=== PATIENT | female | born 1955 | race Caucasian/White ===

== ENCOUNTER 2017-11-15 14:03 | Observation (INO) | payer BC ==
[2017-11-15] MEDS ORDERED: Sodium Chloride 0.9% 1,000 ML IV ONE (14:36)
--- NOTE | 2017-11-15 14:41 | EDM.PDOC ---
ED HPI GENERAL MEDICAL PROBLEM - General Chief Complaint: General Stated Complaint: DIZZY Time Seen by Provider: 11/15/17 14:30 Source of Information: Reports: Patient, Family History Limitations: Reports: No Limitations - History of Present Illness INITIAL COMMENTS - FREE TEXT/NARRATIVE: History of present illness: [62-year-old female presents status post syncopal episode. Patient was taking a shower when she became dizzy and fell over she doesn't recall if she fell and hit her head or what exactly transpired she does know that she was standing up felt dizzy and then she was lying down. Patient indicates that she is a diabetic and that she has been feeling unwell since Tuesday and has slept most the weekend and has failed to take any of her medication. Patient indicates she did a random blood sugar after this episode in the shower and her blood sugars 199 her finger stick. Patient indicates she is just now starting to have stomach pain and some diarrhea she denies any knowledge of flu and/or flu vaccine.] Review of systems: As per history of present illness and below otherwise all systems reviewed and negative. Past medical history: As per history of present illness and as reviewed below otherwise noncontributory. Surgical history: As per history of present illness and as reviewed below otherwise noncontributory. Social history: No reported history of drug or alcohol abuse. Family history: As per history of present illness and as reviewed below otherwise noncontributory. Physical exam: HEENT: Atraumatic, normocephalic, pupils reactive, negative for conjunctival pallor or scleral icterus, mucous membranes moist, throat clear, neck supple, nontender, trachea midline. Lungs: Clear to auscultation, breath sounds equal bilaterally, chest nontender. Heart: S1S2, regular, negative for clicks, rubs, or JVD. Abdomen: Soft, nondistended, nontender. Negative for masses or hepatosplenomegaly. Negative for costovertebral tenderness. Pelvis: Stable nontender. Genitourinary: Deferred. Rectal: Deferred. Extremities: Atraumatic, negative for cords or calf pain. Neurovascular unremarkable. Neuro: Awake, alert, oriented. Cranial nerves II through XII unremarkable. Cerebellum unremarkable. Motor and sensory unremarkable throughout. Exam nonfocal. Discussed admission for observation with patient and she indicated that she would stay. Diagnostics: [CBC, CMP, EKG, CT of head without contrast, troponin number UA] Therapeutics: [IV fluid] Impression: [Syncopal episode] Plan: [Admit for observation] Definitive disposition and diagnosis as appropriate pending reevaluation and review of above. body ahces Pain Score (Numeric/FACES): 8 - Related Data Allergies Allergy/AdvReac Type Severity Reaction Status Date / Time amoxicillin Allergy Vaginitis Verified 11/15/17 14:15 cephalexin monohydrate Allergy Itching Verified 11/15/17 14:15 [From Keflex] prednisone Allergy Chest Verified 11/15/17 14:15 Tightness Regular Band-aids Allergy Redness Uncoded 04/02/15 16:14 Home Meds: Home Meds Aspirin [Halfprin] 1 tab PO DAILY 04/02/15 [History] [place]-3 Fatty Acids [[place]-3] 1 tab PO DAILY 04/02/15 [History] Triamterene/Hydrochlorothiazid [Triamterene-HCTZ 75-50 MG] 1 tab PO BRK [History] amLODIPine Besylate/Benazepril [Amlodipine-Benazepril 5-40 MG] 1 tab PO BRK [History] atorvaSTATin Calcium [Atorvastatin Calcium] 40 mg PO BEDTIME 04/02/15 [History] Calcium Polycarbophil [Fiber-Caps] 625 mg PO DAILY 11/15/17 [History] Glimepiride [Amaryl] 2 mg PO WITHBREAKFAST 11/15/17 [History] Loratadine/Pseudoephedrine [Allerclear D-24Hr ER] 1 each PO DAILY 11/15/17 [ History] Multivitamin [Daily Mitch] 1 each PO DAILY 11/15/17 [History] Pioglitazone HCl/Metformin HCl [Actoplus Met 15 MG-850 MG] 1 tab PO BIDMEALS 01/01 [History] Repaglinide 2 mg PO TIDMEALS 11/15/17 [History] Past Medical History HEENT History: Reports: Impaired Vision Cardiovascular History: Reports: High Cholesterol, Hypertension Respiratory History: Reports: None Gastrointestinal History: Reports: None Genitourinary History: Reports: None [employer]ET[employer] INTERN History: Reports: None Musculoskeletal History: Reports: None Neurological History: Reports: None Psychiatric History: Reports: None Endocrine/Metabolic History: Reports: Diabetes, Type II Hematologic History: Reports: None Immunologic History: Reports: None Oncologic (Cancer) History: Reports: None Dermatologic History: Reports: None - Infectious Disease History Infectious Disease History: Reports: Chicken Pox, Measles - Past Surgical History Head Surgeries/Procedures: Reports: None HEENT Surgical History: Reports: None Cardiovascular Surgical History: Reports: None Respiratory Surgical History: Reports: None GI Surgical History: Reports: Appendectomy, Cholecystectomy Female Surgical History: Reports: None Endocrine Surgical History: Reports: None Neurological Surgical History: Reports: None Musculoskeletal Surgical History: Reports: None Oncologic Surgical History: Reports: None Dermatological Surgical History: Reports: None Social & Family History - Family History Family Medical History: Noncontributory - Tobacco Use Smoking Status *Q: Never Smoker - Caffeine Use Caffeine Use: Reports: Coffee - Alcohol Use Days Per Week of Alcohol Use: 1 Number of Drinks Per Day: 1 Total Drinks Per Week: 1 - Recreational Drug Use Recreational Drug Use: No Drug Use in Last 12 Months: No ED ROS GENERAL - Review of Systems Review Of Systems: See Below (See history of present illness) ED EXAM, GENERAL - Physical Exam Exam: See Below (See history of present illness) Course - Vital Signs Last Recorded V/S: Last Vital Signs Temp 36.1 C 11/15/17 14:16 Pulse 81 11/15/17 14:16 Resp 18 11/15/17 14:16 BP 157/71 H 11/15/17 14:16 Pulse Ox 100 11/15/17 14:16 - Orders/Labs/Meds Orders: Active Orders 24 hr Category Date Time Status EKG Documentation Completion [RC] STAT Care 11/15/17 14:36 Active UA W/MICROSCOPIC [URIN] Stat Lab 11/15/17 14:41 Uncollected Labs: Laboratory Tests 11/15/17 11/15/17 Range/Units 15:19 15:19 WBC 3.00 L (4.0-11.0) K/uL RBC 4.50 (4.30-5.90) M/uL Hgb 13.0 (12.0-16.0) g/dL Hct 38.5 (36.0-46.0) % MCV 85.6 (80.0-98.0) fL MCH 28.9 (27.0-32.0) pg MCHC 33.8 (31.0-37.0) g/dL RDW Std Deviation 42.4 (28.0-62.0) fl RDW Coeff of Jeannie 14 (11.0-15.0) % Plt Count 189 (150-400) K/uL MPV 9.50 (7.40-12.00) fL Neut % (Auto) 62.7 (48.0-80.0) % Lymph % (Auto) 26.0 (16.0-40.0) % [place] % (Auto) 10.7 (0.0-15.0) % Eos % (Auto) 0.3 (0.0-7.0) % Baso % (Auto) 0.3 (0.0-1.5) % Neut # (Auto) 1.9 (1.4-5.7) K/uL Lymph # (Auto) 0.8 (0.6-2.4) K/uL [place] # (Auto) 0.3 (0.0-0.8) K/uL Eos # (Auto) 0.0 (0.0-0.7) K/uL Baso # (Auto) 0.0 (0.0-0.1) K/uL Nucleated RBC % 0.0 /100WBC Nucleated RBCs # 0 K/uL Sodium 132 L (136-146) mmol/L Potassium 3.2 L (3.5-5.1) mmol/L Chloride 93 L (98-110) mmol/L Carbon Dioxide 24 (21-31) mmol/L BUN 27 H (6.0-23.0) mg/dL Creatinine 1.7 H (0.6-1.5) mg/dL Est Cr Clr Drug Dosing 32.94 mL/min Estimated GFR (MDRD) 30.4 ml/min Glucose 213 H (60-110) mg/dL Calcium 9.1 (8.8-10.8) mg/dL Total Bilirubin 0.5 (0.1-1.5) mg/dL AST 36 (5-40) IU/L ALT 47 (8-54) IU/L Alkaline Phosphatase 59 (40-150) Troponin I < 0.10 (0.0-0.29) NG/ML Total Protein 7.0 (6.0-8.0) g/dL Albumin 3.8 (3.4-4.8) g/dL Globulin 3.2 (2.0-3.5) g/dL Albumin/Globulin Ratio 1.2 L (1.3-2.8) Meds: Medications Discontinued Medications Generic Name Dose Route Start Last Admin Trade Name Win PRN Reason Stop Dose Admin Sodium Chloride 1,000 mls @ 999 mls/hr 11/15/17 14:36 11/15/17 15:36 Normal Saline IV 11/15/17 15:36 999 mls/hr STAT ONE Administration Departure - Departure Time of Disposition: 16:24 Disposition: Home, Self-Care 01 Condition: Good Clinical Impression: Syncopal episodes - Discharge Information Referrals: PCP,None [Primary Care Provider] - Forms: ED Department Discharge - My Orders Last 24 Hours: My Active Orders 11/15/17 14:36 EKG Documentation Completion [RC] STAT 11/15/17 14:41 UA W/MICROSCOPIC [URIN] Stat - Assessment/Plan Last 24 Hours: My Active Orders 11/15/17 14:36 EKG Documentation Completion [RC] STAT 11/15/17 14:41 UA W/MICROSCOPIC [URIN] Stat
[2017-11-15 15:47] LABS: CHLORIDE,CL 93 mmol/L (98-110); SODIUM,NA 132 mmol/L (136-146)
--- NOTE | 2017-11-15 16:12 | CT ---
EXAMINATION: Non contrast CT head. Coronal and sagittal reformats. HISTORY: Pain FINDINGS: No evidence of intra or extra axial hemorrhage, mass, midline shift, hydrocephalus or edema. Minimal periventricular and subcortical white matter hypodensities are noted. No hypoattenuation changes in the major vascular territories to suggest acute infarct. No abnormal i ntracranial calcifications are detected. No evidence of substantial vascular calcifications. There is mild mucosal thickening within the maxillary sinuses. The orbits and globes are symmetric. M astoid air cells are clear. Pituitary fossa appears unremarkable. The calvarium is intact. No evidence of skull fracture. IMPRESSION: 1. No acute intracranial findings. 2. Likely minimal small vessel ischemic changes.
[2017-11-15] MEDS ORDERED: Ondansetron 4 MG/2 ML SDV IVPUSH PRN (19:04)
--- NOTE | 2017-11-15 19:11 | PCM.HP ---
H&P History of Present Illness - General Admit Problem/Dx: Admission Diagnosis/Problem Admission Diagnosis/Problem Syncope - History of Present Illness Initial Comments - Free Text/Narative: 62 yo male with pmh of Type 2 DM, hypertension, hyperlipidemia who presents with several day history of not feeling well. She reports loss of apatite, nausea, diarrhea, and cough. She denies any shortness of breath, fevers, or chills. Today she passed out in the shower. She does not think she hit her head. She reported feeling dizzy prior to passing out. Headache Pain Score (Numeric/FACES): 8 body ahces Pain Score (Numeric/FACES): 8 - Related Data Allergies/Adverse Reactions: Allergies Allergy/AdvReac Type Severity Reaction Status Date / Time amoxicillin Allergy Vaginitis Verified 11/15/17 14:15 cephalexin monohydrate Allergy Itching Verified 11/15/17 14:15 [From Keflex] prednisone Allergy Chest Verified 11/15/17 14:15 Tightness Regular Band-aids Allergy Redness Uncoded 04/02/15 16:14 Home Medications: Home Meds Aspirin [Halfprin] 1 tab PO DAILY 04/02/15 [History] [place]-3 Fatty Acids [[place]-3] 1 tab PO DAILY 04/02/15 [History] Triamterene/Hydrochlorothiazid [Triamterene-HCTZ 75-50 MG] 1 tab PO BRK [History] amLODIPine Besylate/Benazepril [Amlodipine-Benazepril 5-40 MG] 1 tab PO BRK [History] atorvaSTATin Calcium [Atorvastatin Calcium] 40 mg PO BEDTIME 04/02/15 [History] Calcium Polycarbophil [Fiber-Caps] 625 mg PO DAILY 11/15/17 [History] Glimepiride [Amaryl] 2 mg PO WITHBREAKFAST 11/15/17 [History] Loratadine/Pseudoephedrine [Allerclear D-24Hr ER] 1 each PO DAILY 11/15/17 [ History] Multivitamin [Daily Mitch] 1 each PO DAILY 11/15/17 [History] Pioglitazone HCl/Metformin HCl [Actoplus Met 15 MG-850 MG] 1 tab PO BIDMEALS 01/01 [History] Repaglinide 2 mg PO TIDMEALS 11/15/17 [History] Past Medical History HEENT History: Reports: Impaired Vision Cardiovascular History: Reports: High Cholesterol, Hypertension Respiratory History: Reports: None Gastrointestinal History: Reports: None Genitourinary History: Reports: None 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 Musculoskeletal History: Reports: None Neurological History: Reports: None Psychiatric History: Reports: None Endocrine/Metabolic History: Reports: Diabetes, Type II Hematologic History: Reports: None Immunologic History: Reports: None Oncologic (Cancer) History: Reports: None Dermatologic History: Reports: None - Infectious Disease History Infectious Disease History: Reports: Chicken Pox, Measles - Past Surgical History Head Surgeries/Procedures: Reports: None HEENT Surgical History: Reports: None Cardiovascular Surgical History: Reports: None Respiratory Surgical History: Reports: None GI Surgical History: Reports: Appendectomy, Cholecystectomy Female Surgical History: Reports: None Endocrine Surgical History: Reports: None Neurological Surgical History: Reports: None Musculoskeletal Surgical History: Reports: None Oncologic Surgical History: Reports: None Dermatological Surgical History: Reports: None Social & Family History - Family History Family Medical History: Noncontributory - Tobacco Use Smoking Status *Q: Never Smoker Second Hand Smoke Exposure: No - Caffeine Use Caffeine Use: Reports: Coffee - Alcohol Use Days Per Week of Alcohol Use: 1 Number of Drinks Per Day: 1 Total Drinks Per Week: 1 - Recreational Drug Use Recreational Drug Use: No Drug Use in Last 12 Months: No H&P Review of Systems - Review of Systems: Review Of Systems: ROS reveals no pertinent complaints other than HPI. Exam - Exam Exam: See Below - Vital Signs Vital Signs: Last Vital Signs Temp 36.7 C 11/15/17 17:55 Pulse 76 11/15/17 17:55 Resp 20 11/15/17 17:55 BP 160/74 H 11/15/17 17:55 Pulse Ox 99 11/15/17 17:55 Weight: 108.6 kg - Exam General: Alert, Oriented HEENT: Mucosa Moist & [place] Lungs: Clear to Auscultation, Normal Respiratory Effort Cardiovascular: Regular Rate, Regular Rhythm GI/Abdominal Exam: Soft, Non-Tender, No Distention Extremities: No Pedal Edema Skin: Warm, Dry, Intact Neurological: No: Focal Deficit - Patient Data Result Diagrams: 11/16/17 05:02 11/16/17 05:02 *Q Meaningful Use (ADM) - VTE *Q VTE Criteria *Q: - Stroke *Q Stroke Criteria *Q: - AMI *Q AMI Criteria *Q: Problem List Initiated/Reviewed/Updated: Yes Orders Last 24hrs: Active Orders 24 hr Category Date Time Status Accu Check [Blood Glucose Check, Bedside] [RC] TIDAC Care 11/15/17 19:07 Ordered Antiembolic Devices [RC] PER UNIT ROUTINE Care 11/15/17 19:05 Ordered Oxygen Therapy [RC] PRN Care 11/15/17 19:04 Ordered Telemetry Monitoring [Cardiac Monitoring] [RC] Q8H Care 11/15/17 17:14 Active [place] ad [place] [RC] ASDIRECTED Care 11/15/17 19:04 Ordered VTE/DVT Education [RC] PER UNIT ROUTINE Care 11/15/17 19:04 Ordered Vital Signs [RC] Q4H Care 11/15/17 19:04 Ordered [place] [employer] Diet [DIET] Diet 11/15/17 Breakfast Ordered BASIC METABOLIC PANEL,BMP [CHEM] AM Lab 11/16/17 05:11 Ordered CBC WITH AUTO DIFF [HEME] AM Lab 11/16/17 05:11 Ordered Insulin Aspart [NovoLOG] Med 11/16/17 07:30 Ordered See Protocol SUBCUT TIDAC Ondansetron [Zofran] Med 11/15/17 19:04 Ordered 4 mg IVPUSH Q4H PRN Sodium Chloride 0.9% @ 125 MLS/HR (1000ml) Med 11/15/17 19:15 Ordered Sodium Chloride 0.9% [Normal Saline] 1,000 ml IV ASDIRECTED Sequential Compression Device [OM.PC] Per Unit Routine Oth 11/15/17 19:04 Ordered Resuscitation Status Routine Resus Stat 11/15/17 19:04 Ordered Medication Orders Sodium Chloride (Normal Saline) 1,000 mls @ 125 mls/hr IV ASDIRECTED UMANG Ondansetron HCl (Zofran) 4 mg IVPUSH Q4H PRN PRN Reason: Nausea Assessment/Plan Comment:: 62 yo female admitted following a syncopal event. Based on her history I suspect dehydration due to viral gastroenteritis. We will hydrate with IV fluids and monitor on telemetry. We will place on diabetic diet and place on sliding scale insulin premeals.
[2017-11-15] MEDS: Sodium Chloride 0.9% 1,000 ML IV SCH (20:36)
[2017-11-15] MEDS ORDERED: atorvaSTATin 40 MG Tab PO SCH (21:00)
[2017-11-15] MEDS: Acetaminophen 325 MG Tab PO PRN (21:35)
[2017-11-16] MEDS: Sodium Chloride 0.9% 1,000 ML IV SCH (04:52)
[2017-11-16] MEDS ORDERED: Insulin Aspart 100 Units/ML 3 ML Pen SUBCUT SCH (07:30)
[2017-11-16 08:53] VITALS: BP 130/67
[2017-11-16] MEDS ORDERED: Potassium Chloride 10% 20 MEQ/15 ML Soln 30 ML UD Cup PO ONE (08:53)
[2017-11-16] MEDS ORDERED: Potassium Chloride 20 MEQ Tab.ER PO ONE (08:53)
--- NOTE | 2017-11-16 08:57 | PCM.DCSUM1 ---
Discharge Summary - Hospital Course Free Text/Narrative:: 62 yo fm with history of HTN, hypercholesterolemia and DM type 2 admitted to observation for syncope. She was observed for 24 hours. Her vitals were stable and telemetry was wnl. Syncope did not recur. She was placed on ISs sliding scale for her DM. She was discharged home the following day. She will f/u with her PCP. No changes made to home medications. - Discharge Data Discharge Date: 11/16/17 Discharge Disposition: Home, Self-Care 01 Condition: Good - Patient Instructions Diet: Heart Healthy Diet Activity: As Tolerated Showering/Bathing: March Shower Notify Provider of: Fever, Increased Pain, Swelling and Redness, Drainage, Nausea and/or Vomiting - Discharge Plan Home Medications: Home Meds Aspirin [Halfprin] 1 tab PO DAILY 04/02/15 [History] [place]-3 Fatty Acids [[place]-3] 1 tab PO DAILY 04/02/15 [History] Triamterene/Hydrochlorothiazid [Triamterene-HCTZ 75-50 MG] 1 tab PO BRK [History] amLODIPine Besylate/Benazepril [Amlodipine-Benazepril 5-40 MG] 1 tab PO BRK [History] atorvaSTATin Calcium [Atorvastatin Calcium] 40 mg PO BEDTIME 04/02/15 [History] Calcium Polycarbophil [Fiber-Caps] 625 mg PO DAILY 11/15/17 [History] Glimepiride [Amaryl] 2 mg PO WITHBREAKFAST 11/15/17 [History] Loratadine/Pseudoephedrine [Allerclear D-24Hr ER] 1 each PO DAILY 11/15/17 [ History] Multivitamin [Daily Mitch] 1 each PO DAILY 11/15/17 [History] Pioglitazone HCl/Metformin HCl [Actoplus Met 15 MG-850 MG] 1 tab PO BIDMEALS 01/01 [History] Repaglinide 2 mg PO TIDMEALS 11/15/17 [History] Forms: ED Department Discharge Referrals: PCP,None [Primary Care Provider] - - Discharge Summary/Plan Comment DC Time >30 min.: No - General Info Functional Status: Reports: Pain Controlled, Tolerating Diet, Ambulating, Urinating - Review of Systems General: Reports: No Symptoms HEENT: Reports: No Symptoms Pulmonary: Reports: No Symptoms Cardiovascular: Reports: No Symptoms Gastrointestinal: Reports: No Symptoms Genitourinary: Reports: No Symptoms Musculoskeletal: Reports: No Symptoms Skin: Reports: No Symptoms Neurological: Reports: No Symptoms Psychiatric: Reports: No Symptoms - Patient Data Vitals - Most Recent: Last Vital Signs Temp 36.3 C 11/16/17 08:00 Pulse 75 11/16/17 08:00 Resp 18 11/16/17 08:00 BP 130/67 11/16/17 08:00 Pulse Ox 98 11/16/17 08:00 Weight - Most Recent: 108.6 kg I&O - Last 24 hours: Intake & Output 11/15/17 11/16/17 11/16/17 22:59 06:59 14:59 Intake Total 1849 Output Total 500 Balance 1349 Lab Results - Last 24 hrs: Laboratory Results - last 24 hr 11/15/17 11/15/17 11/16/17 Range/Units 21:26 21:35 05:02 WBC 3.17 L (4.0-11.0) K/uL RBC 4.40 (4.30-5.90) M/uL Hgb 12.7 (12.0-16.0) g/dL Hct 37.5 (36.0-46.0) % MCV 85.2 (80.0-98.0) fL MCH 28.9 (27.0-32.0) pg MCHC 33.9 (31.0-37.0) g/dL RDW Std Deviation 42.6 (28.0-62.0) fl RDW Coeff of Jeannie 14 (11.0-15.0) % Plt Count 178 (150-400) K/uL MPV 9.90 (7.40-12.00) fL Neut % (Auto) 42.0 L (48.0-80.0) % Lymph % (Auto) 48.6 H (16.0-40.0) % [place] % (Auto) 9.1 (0.0-15.0) % Eos % (Auto) 0.0 (0.0-7.0) % Baso % (Auto) 0.3 (0.0-1.5) % Neut # (Auto) 1.3 L (1.4-5.7) K/uL Lymph # (Auto) 1.5 (0.6-2.4) K/uL [place] # (Auto) 0.3 (0.0-0.8) K/uL Eos # (Auto) 0.0 (0.0-0.7) K/uL Baso # (Auto) 0.0 (0.0-0.1) K/uL Nucleated RBC % 0.0 /100WBC Nucleated RBCs # 0 K/uL Sodium (136-146) mmol/L Potassium (3.5-5.1) mmol/L Chloride (98-110) mmol/L Carbon Dioxide (21-31) mmol/L BUN (6.0-23.0) mg/dL Creatinine (0.6-1.5) mg/dL Est Cr Clr Drug Dosing mL/min Estimated GFR (MDRD) ml/min Glucose (60-110) mg/dL POC Glucose 148 H (60-110) mg/dL Calcium (8.8-10.8) mg/dL Urine Color YELLOW Urine Appearance HAZY Urine pH 6.5 (5.0-8.0) Ur Specific [place] <= 1.005 (1.001-1.035) Urine Protein NEGATIVE (NEGATIVE) mg/dL Urine Glucose (UA) NEGATIVE (NEGATIVE) mg/dL Urine Ketones NEGATIVE (NEGATIVE) mg/dL Urine Occult Blood NEGATIVE (NEGATIVE) Urine Nitrite NEGATIVE (NEGATIVE) Urine Bilirubin NEGATIVE (NEGATIVE) Urine Urobilinogen 0.2 (<2.0) EU/dL Ur Leukocyte Esterase MODERATE (NEGATIVE) Urine RBC 0-2 (0-2/HPF) Urine WBC 4-6 (0-5/HPF) Ur Epithelial Cells FEW (NONE-FEW) Urine Bacteria FEW (NEGATIVE) 11/16/17 11/16/17 Range/Units 05:02 06:39 WBC (4.0-11.0) K/uL RBC (4.30-5.90) M/uL Hgb (12.0-16.0) g/dL Hct (36.0-46.0) % MCV (80.0-98.0) fL MCH (27.0-32.0) pg MCHC (31.0-37.0) g/dL RDW Std Deviation (28.0-62.0) fl RDW Coeff of Jeannie (11.0-15.0) % Plt Count (150-400) K/uL MPV (7.40-12.00) fL Neut % (Auto) (48.0-80.0) % Lymph % (Auto) (16.0-40.0) % [place] % (Auto) (0.0-15.0) % Eos % (Auto) (0.0-7.0) % Baso % (Auto) (0.0-1.5) % Neut # (Auto) (1.4-5.7) K/uL Lymph # (Auto) (0.6-2.4) K/uL [place] # (Auto) (0.0-0.8) K/uL Eos # (Auto) (0.0-0.7) K/uL Baso # (Auto) (0.0-0.1) K/uL Nucleated RBC % /100WBC Nucleated RBCs # K/uL Sodium 137 (136-146) mmol/L Potassium 3.0 L (3.5-5.1) mmol/L Chloride 100 (98-110) mmol/L Carbon Dioxide 23 (21-31) mmol/L BUN 21 (6.0-23.0) mg/dL Creatinine 1.2 (0.6-1.5) mg/dL Est Cr Clr Drug Dosing 46.66 mL/min Estimated GFR (MDRD) 45.4 ml/min Glucose 121 H (60-110) mg/dL POC Glucose 127 H (60-110) mg/dL Calcium 8.3 L (8.8-10.8) mg/dL Urine Color Urine Appearance Urine pH (5.0-8.0) Ur Specific [place] (1.001-1.035) Urine Protein (NEGATIVE) mg/dL Urine Glucose (UA) (NEGATIVE) mg/dL Urine Ketones (NEGATIVE) mg/dL Urine Occult Blood (NEGATIVE) Urine Nitrite (NEGATIVE) Urine Bilirubin (NEGATIVE) Urine Urobilinogen (<2.0) EU/dL Ur Leukocyte Esterase (NEGATIVE) Urine RBC (0-2/HPF) Urine WBC (0-5/HPF) Ur Epithelial Cells (NONE-FEW) Urine Bacteria (NEGATIVE) Med Orders - Current: Current Medications Acetaminophen (Tylenol) 650 mg PO Q6H PRN PRN Reason: Headache/Pain Last Admin: 11/15/17 21:35 Dose: 650 mg Amlodipine Besylate (Norvasc) 5 mg PO DAILY [facility] Atorvastatin Calcium (Lipitor) 40 mg PO BEDTIME UMANG Last Admin: 11/15/17 21:35 Dose: 40 mg Benazepril HCl (Lotensin) 40 mg PO DAILY [facility] Sodium Chloride (Normal Saline) 1,000 mls @ 125 mls/hr IV ASDIRECTED [facility] Last Admin: 11/16/17 04:52 Dose: 125 mls/hr Insulin Aspart (Novolog) 0 unit SUBCUT TIDAC UMANG PRN Reason: Protocol Last Admin: 11/16/17 08:17 Dose: Not Given Ondansetron HCl (Zofran) 4 mg IVPUSH Q4H PRN PRN Reason: Nausea Potassium Chloride (Potassium Chloride) 40 meq PO ONETIME ONE Stop: 11/16/17 08:54 Potassium Chloride (Klor-Con M20) 20 meq PO ONETIME ONE Stop: 11/16/17 08:54 Triamterene/HCTZ (Maxzide 50-75 Mg) 1 each PO DAILY [facility] Discontinued Medications Sodium Chloride (Normal Saline) 1,000 mls @ 999 mls/hr IV STAT ONE Stop: 11/15/17 15:36 Last Admin: 11/15/17 15:36 Dose: 999 mls/hr - Exam General: Reports: Alert, Oriented, Cooperative, No Acute Distress HEENT: Reports: Pupils Equal, Pupils Reactive Neck: Reports: Supple Lungs: Reports: Clear to Auscultation, Normal Respiratory Effort Cardiovascular: Reports: Regular Rate, Regular Rhythm GI/Abdominal Exam: Normal Bowel Sounds, Soft, Non-Tender, No Distention Back Exam: Reports: Normal Inspection Extremities: Normal Inspection, Normal Capillary Refill Skin: Reports: Warm, Dry, Intact Neurological: Reports: No New Focal Deficit Psy/Mental Status: Reports: Alert, Normal Affect, Normal Mood *Q Meaningful Use (DIS) - VTE *Q VTE Criteria *Q: - Stroke *Q Stroke Criteria *Q: - AMI *Q AMI Criteria *Q:
[2017-11-16] MEDS ORDERED: Benazepril 10 MG Tab PO SCH (09:00)
[2017-11-16] MEDS ORDERED: amLODIPine 5 MG Tab PO SCH (09:00)
[2017-11-16] MEDS ORDERED: Hydrochlorothiazide/Triamterene 50-75 MG Tab PO SCH (09:00)
[2017-11-16] MEDS: Acetaminophen 325 MG Tab PO PRN (10:42)
== END 2017-11-16 11:15 | disposition home or self-care (01) ==
LOC: MW.ED 14:03 → MW.MS 16:30
PROVIDERS: ADMIT Internal Medicine; ATTEND Internal Medicine
DX: R55 Syncope and collapse (principal); I10 Essential (primary) hypertension; E78.00 Pure hypercholesterolemia, unspecified; E11.9 Type 2 diabetes mellitus without complications; Z88.1 Allergy status to other antibiotic agents; Z79.899 Other long term (current) drug therapy; Z79.82 Long term (current) use of aspirin; Z88.8 Allergy status to other drugs, medicaments and biological substances; Z91.048 Other nonmedicinal substance allergy status; Z90.49 Acquired absence of other specified parts of digestive tract
CPT/HCPCS: 36415; 70450; 80048; 80053; 81001; 82962; 84484; 85025; 87804; 96360; 96361; 99285; A9270; G0378; J7040; 99283